=== PATIENT | female | born 2000 | race Caucasian/White ===

== ENCOUNTER 2021-12-23 22:27 | Emergency (ER) | payer OTHER ==
[~2021-12-23] VITALS: Ht 154.9 cm; Wt 69.4 kg
[2021-12-23 22:28] VITALS: BP 132/74
[2021-12-23] MEDS ORDERED: ACETAMINOPHEN 325 MG TAB PO ONE (22:50)
[2021-12-23] MEDS ORDERED: IBUPROFEN 600MG TAB PO ONE (22:50)
== END 2021-12-24 01:52 | disposition home or self-care (01) ==
LOC: M ED 22:27 → EDSEX 22:27 → M ED 12-24 01:52
DX: U07.1 COVID-19 (principal)

== ENCOUNTER → 2022-11-12 | Outpatient (CLI) | payer OTHER ==
[2022-11-12 11:49] LABS: HEMATOCRIT 44.2 % (36.0-47.0); HEMOGLOBIN 14.5 g/dl (12.0-15.5); MEAN CORPUSCULAR HEMOGLOBIN 30.4 pg (27.0-33.0); MEAN CORPUSCULAR HGB CONC 32.8 g/dl (32.0-36.5); MEAN CORPUSCULAR VOLUME 92.7 fl (80.0-96.0); PLATELET COUNT, AUTOMATED 301 10^3/uL (150-450); RED BLOOD COUNT 4.77 10^6/uL (4.00-5.40); WHITE BLOOD COUNT 7.6 10^3/uL (4.0-10.0)
== END ==
LOC: M LAB 10:36
PROVIDERS: ATTEND Physician Assistant Medical
DX: K62.5 Hemorrhage of anus and rectum (principal)

== ENCOUNTER 2022-12-05 07:31 | Day surgery (SDC) | payer OTHER ==
[~2022-12-05] VITALS: Ht 154.9 cm; Wt 61.6 kg
[~2022-12-05 07:31] MED LIST: NS 1,000 ML IV ONE
[2022-12-05 09:15] VITALS: BP 105/59
== END 2022-12-05 14:18 | disposition home or self-care (01) ==
LOC: M OPP 07:31
PROVIDERS: ATTEND Internal Medicine Gastroenterology
DX: K64.8 Other hemorrhoids (principal); K62.5 Hemorrhage of anus and rectum; Z79.899 Other long term (current) drug therapy